=== PATIENT | male | born 1980 | race Two or more races ===

== ENCOUNTER 2022-09-20 14:46 | Emergency (ER) | payer OTHER ==
[~2022-09-20] VITALS: Ht 182.9 cm; Wt 77.2 kg
[2022-09-20 15:15] VITALS: BP 111/92
[2022-09-20] MEDS ORDERED: SODIUM CHLORIDE 0.9% 1,000 ML IVB ONE (15:15)
[2022-09-20 16:36] LABS: Basophils # (auto) 0 10 ^3/uL (0-0.2); Eosinophils # (auto) 0 10 ^3/uL (0-0.8)
[2022-09-20 16:39] LABS: Basophils % (auto) 0.6 % (0.0-2.0); Eosinophils % (auto) 0.4 % (0.0-7.0); Hematocrit 51.8 % (41.0-53.0); Hemoglobin 17.2 g/dL (13.5-17.5); Lymphocytes # (auto) 0.8 10 ^3/uL (0.4-5.4); Lymphocytes % (auto) 12.8 % (10.0-50.0); Mean Corpuscular Hemoglobin 27.5 pg (28.0-32.0); Mean Corpuscular Hgb Conc. 33.2 g/dL (32.0-36.0); Mean Corpuscular Volume 82.9 fL (80.0-100.0); Monocytes # (auto) 0.5 10 ^3/uL (0-1.3); Monocytes % (auto) 7.6 % (0.0-12.0); Neutrophils # (auto) 4.7 10 ^3/uL (1.6-8.6); Neutrophils % (auto) 78.6 % (37.0-80.0); Nucleated Red Blood Cells % 1.1 %; Red Blood Cells 6.25 10^6/uL (4.5-5.90); Red Cell Distribution Width 12.9 % (11.8-14.3)
[2022-09-20 17:01] LABS: Albumin 4.3 g/dL (3.4-5.0); Anion Gap 16 (5-15); BUN/Creatinine Ratio 8.2; Blood Alcohol < 3.0 mg/dL (0-5); Blood Urea Nitrogen 13 mg/dL (7-18); Calcium 9.7 mg/dL (8.5-10.1); Carbon Dioxide 26 mmol/L (21-32); Chloride 92 mmol/L (98-107); GFR African American 62 mL/min; GFR Non-African American 52 mL/min; Glucose 78 mg/dL (74-106); Lipase 68 U/L (73-393); Potassium 4.7 mmol/L (3.5-5.1); Sodium 134 mmol/L (136-145)
[2022-09-20 17:04] LABS: Alanine Aminotransferase 21 U/L (16-61); Alkaline Phosphatase 69 U/L (45-117); Aspartate Aminotransferase 33 U/L (15-37); Bilirubin, Total 0.7 mg/dL (0.2-1.0); Total Protein 8.1 g/dL (6.4-8.2)
[2022-09-20 17:12] LABS: Lactic Acid w/Reflex 2.3 mmol/L (0.4-2.0)
== END 2022-09-20 19:37 ==
LOC: ER 14:46 → EEVIPCON 14:46 → ER 19:37
DX: F32.9 Major depressive disorder, single episode, unspecified (principal); R62.7 Adult failure to thrive; R51.9 Headache, unspecified; Z68.23 Body mass index [BMI] 23.0-23.9, adult
CPT/HCPCS: 36415; 70450; 74176; 80053; 80320; 82962; 83605; 83690; 85025; 93005; 96360; 99285; J7030